=== PATIENT | male | born 1995 | race Caucasian/White ===

== ENCOUNTER → 2017-09-13 | Outpatient (CLI) | payer MEDICAID ==
--- NOTE | 2017-09-13 15:13 | RADIOLOGY REPORT (SQ) ---
EXAM DESCRIPTION: U/S SCROTUM W/DOPPLER COMPLETED DATE/TIME: 09/13/2017 2:39 pm REASON FOR STUDY: LEFT TESTICAL PAIN (N50.812) N50.812 LEFT TESTICULAR PAIN COMPARISON: None. TECHNIQUE: Static and realtime daniels scale imaging of the scrotum and testes. Selected color Doppler and spectral images recorded to document blood flow. LIMITATIONS: None. FINDINGS: RIGHT: TESTICLE: The right testicle measures 3.9 x 2.3 x 2.1 cm. Normal size. Normal echotexture. Normal blood flow. No mass. EPIDIDYMIS: The head of the epididymis measures 1.0 x 1.1 x 1.2 cm. A 0.7 x 0.5 x 0.7 cm cyst is i dentified. HYDROCELE OR VARICOCELE: No. HERNIA OR EXTRA-TESTICULAR MASS: No. OTHER: No other significant finding. LEFT: TESTICLE: The left testicle measures 4.3 x 2.3 x 2.3 cm. Normal size. Normal blood flow. A 0.2 x 0.3 x 0.2 cm indeterminate hypoechoic area within the testicle. No blood flow demonstrated within th e area. EPIDIDYMIS: The head of the epididymis measures 0.9 x 1.2 x 1.1 cm. A 0.4 x 0.5 x 0.3 cm cyst is id entified. HYDROCELE OR VARICOCELE: No. HERNIA OR EXTRA-TESTICULAR MASS: No. OTHER: No other significant finding. IMPRESSION: 1. A small hypoechoic indeterminate area within the left testicle. Correlation is sugg ested. 2. The right testicle is unremarkable in appearance. 3 Small cysts in the head of the epididymis bilaterally. TECHNICAL DOCUMENTATION: JOB ID: [id number]- All Rights Reserved Reading location - IP/workstation name: [email or web address]
== END ==
LOC: RAD 12:07
PROVIDERS: ATTEND Pediatrics
DX: N50.812 Left testicular pain (principal); N50.3 Cyst of epididymis
CPT/HCPCS: 76870; 93976